=== PATIENT | male | born 1990 | race African-American/Black ===

== ENCOUNTER 2016-10-22 17:02 | Emergency (ER) | payer SELFPAY ==
[~2016-10-22] VITALS: Ht 177.8 cm; Wt 70.0 kg
[2016-10-22 17:03] VITALS: BP 147/85; PULSE 72; RESP 20; TEMP 98.3; O2SAT 98
--- NOTE | 2016-10-22 17:08 | PD ---
Physical Exam Time Seen by Provider: 17:05 Narrative 26yo M c/o SOB x3-4 days. +chest pain. Also c/o a painful, open wound on his penis x 2-3 days. Denies penile dc, dysuria. Denies testicular swelling, pain. Denies fever, vomiting, and pain. Patient seen in triage. VS reviewed. Awaiting bed placement. Data Data Last Documented VS Vital Signs Date Time Temp Pulse Resp B/P (MAP) Pulse Ox O2 Delivery O2 Flow Rate FiO2 10/22/16 17:03 98.3 72 20 147/85 (105) 98 Room Air MDM Supervised Visit with PEREZ: No Scripts No Active Prescriptions or Reported Meds Iwona Davis Oct 22, 2016 17:07
--- NOTE | 2016-10-22 17:31 | RADRPT ---
EXAM DATE/TIME: 10/22/2016 17:31 [facility] COMPARISON: No previous studies available for comparison. INDICATIONS : Left chest pain and short of breath for five days. MEDICAL HISTORY : None. SURGICAL HISTORY : None. ENCOUNTER: Initial ACUITY: 4 - 6 days PAIN SCORE: 9/10 LOCATION: Left chest FINDINGS: PA and lateral views of the chest demonstrate the lungs to be symmetrically aerated without evidence of mass, infiltrate or effusion. The cardiomediastinal contours are unremarkable. Osseous structure s are intact. CONCLUSION: No acute disease. Liang Cox MD on October 22, 2016 at 17:29 Board Certified Radiologist. This report was verified electronically.
[2016-10-22 17:53] LABS: BACTERIA, URINE RARE /hpf; BLOOD, URINE NEG (NEG); COMMENT (UR) CULT NOT INDICATED; CULTURE IF INDICATED CULT NOT INDICATED; GLUCOSE,URINE NEG (NEG); KETONE, URINE NEG (NEG); MUCUS URINE FEW /lpf (OCC); NITRITE,URINE NEG (NEG); URINE COLOR YELLOW (YELLW/STRAW)
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
[2016-10-22 18:00] VITALS: BP 141/79; PULSE 71; RESP 20; O2SAT 98
--- NOTE | 2016-10-22 18:57 | RADRPT ---
EXAM DATE/TIME: 10/22/2016 18:20 [facility] COMPARISON: No previous studies available for comparison. INDICATIONS : Chest pain MEDICAL HISTORY : None. SURGICAL HISTORY : None. ENCOUNTER: Subsequent ACUITY: 4 - 6 days PAIN SCORE: 5/10 LOCATION: chest FINDINGS: A single view of the chest demonstrates the lungs to be symmetrically aerated without evidence of mas s, infiltrate or effusion. The cardiomediastinal contours are unremarkable. Osseous structures are intact. CONCLUSION: Normal examination. Bret Mitchell MD on October 22, 2016 at 18:56 Board Certified Radiologist. This report was verified electronically.
[2016-10-22] MEDS ORDERED: ACYC800T PO (19:15)
[2016-10-22 20:30] LABS: CHLAMYDIA PCR NOT DETECTED (NOT DETECT); NEISSERIA PCR NOT DETECTED (NOT DETECT)
--- NOTE | 2016-10-24 01:07 | EKG ---
Date Performed: 10/22/2016 Time Performed: 17:14:09 PTAGE: 26 years EKG: Sinus rhythm POSSIBLE LEFT ATRIAL ENLARGEMENT BORDERLINE ECG NO PREVIOUS TRACING DOCTOR: Abad Cho Interpretating Date/Time 10/24/2016 01:06:11
== END 2016-10-22 20:00 | disposition home or self-care (01) ==
LOC: NEPC 17:02
DX: L98.9 Disorder of the skin and subcutaneous tissue, unspecified (principal); R07.89 Other chest pain; R05 Cough; F17.200 Nicotine dependence, unspecified, uncomplicated
CPT/HCPCS: 71010; 71020; 81001; 87255; 87491; 87591; 93005

== ENCOUNTER 2016-12-02 04:26 | Emergency (ER) | payer SELFPAY ==
[~2016-12-02] VITALS: Ht 167.6 cm; Wt 73.4 kg
[~2016-12-02 04:26] MED LIST: ACYC800T PO
[2016-12-02 04:28] VITALS: BP 148/94; PULSE 77; RESP 16; TEMP 97.9; O2SAT 96
--- NOTE | 2016-12-02 05:03 | PD ---
HPI Chief Complaint: Skin Problem Time Seen by Provider: 04:44 Travel History International Travel<30 days: No Contact w/Intl Traveler<30days: No Traveled to known affect area: No History of Present Illness HPI 26-year-old black male presents to emergency department with complaints of a rash on his penis. This is a patient who had been seen in the emergency department over a month ago for similar complaint. At that time he had a negative herpes, GC and chlamydia testing. He was told to follow-up with an STD clinic but he did not. He states that he has been using condoms and has just noticed a new rash develop on the shaft of his penis. He states it is somewhat scaly in pruritic. There is some mild burning associated with this. He denies any urethral symptoms. No dysuria or frequency. States that his significant other also has a sore now as well. Symptoms are mild. No alleviating factors. Exacerbated by sex PFSH Past Medical History ADD: Yes Diminished Hearing: No Immunizations Current: Yes Tetanus Vaccination: Unknown Influenza Vaccination: No Past Surgical History Surgical History: No Previous Surgery Social History Alcohol Use: Yes (OCC) Tobacco Use: Yes (02/25 PPD) Substance Use: Yes (MARIJUANA) Allergies-Medications (Allergen,Severity, Reaction): Coded Allergies: No Known Allergies (Verified , 12/02/16) Reported Meds & Prescriptions Reported Meds & Active Scripts Active Review of Systems Except as stated in HPI: all other systems reviewed are Neg Physical Exam Narrative GENERAL: This is a well-nourished, well-developed patient, in no apparent distress. SKIN: No rashes, ecchymoses or lesions. Warm and dry. HEAD: Atraumatic. Normocephalic. EYES: PERRL, EOMI, no discharge or injection. No scleral icterus. EARS: Clear NOSE: Nasal turbinates appear normal. THROAT: Mucosa pink and moist. Airway patent. NECK: Trachea midline. supple, moves head freely. LUNGS: Clear to auscultation. CV: Regular in rhythm. ABDOMEN: Soft nontender. EXT: No clubbing cyanosis or edema. GENITOURINARY: Circumcised. Testes descended bilaterally without evidence of rotation. There is some mild irritation to the mid to distal shaft dorsal surface of the penis. There are no vesicles or pustules. No ulceration. No urethral discharge. Data Data Last Documented VS Vital Signs Date Time Temp Pulse Resp B/P (MAP) Pulse Ox O2 Delivery O2 Flow Rate FiO2 12/02/16 04:28 97.9 77 16 148/94 (112) 96 Room Air Orders Orders Ed Discharge Order (12/02/16 04:56) MDM Medical Decision Making Medical Screen Exam Complete: Yes Emergency Medical Condition: Yes Medical Record Reviewed: Yes Differential Diagnosis MDM: High Differential diagnoses: Abscess, folliculitis, cellulitis, lymphangitis, abrasion, contact dermatitis, STD Narrative Course I see no obvious herpes sore or any urethral symptoms. Patient's etiology is unclear. I've advised him to discontinue intercourse, and follow-up with a urologist and/or a STD clinic Diagnosis Primary Impression: Genital lesion, male Referrals: Urologist 1 week [facility] Dept. 1 week Patient Instructions: General Instructions Additional Instructions: Rest. Follow-up with a urologist or an STD clinic for recheck. Abstain from intercourse until a definitive diagnosis is made. Always use a condom. Return to the ER if any problems. Med/Other Pt SpecificInfo: No Meds Exist/No RX given Disposition: 01 DISCHARGE HOME Condition: Stable Ishaan Conrad Dec 02, 2016 05:03
== END 2016-12-02 05:15 | disposition home or self-care (01) ==
LOC: NEPK 04:26
DX: N48.89 Other specified disorders of penis (principal)
CPT/HCPCS: 99281

== ENCOUNTER 2017-04-26 15:40 | Emergency (ER) | payer BC ==
[2017-04-26 15:56] VITALS: BP 135/74; PULSE 94; RESP 18; TEMP 98.9; O2SAT 98
--- NOTE | 2017-04-26 18:04 | PD ---
HPI Chief Complaint: Complaint Time Seen by Provider: 15:56 (Heaven Johnson) Time Seen by Provider: 16:37 (My Arreguin) Travel History International Travel<30 days: No Contact w/Intl Traveler<30days: No Traveled to known affect area: No (Heaven Johnson) History of Present Illness HPI This is a 27-year-old male here with painful penile lesions and penile discharge times one day. Patient has a history of genital herpes. He reports these lesions are similar to his prior outbreaks. He reports a clear/yellow discharge which is new and does not typically accompany his genital herpes outbreaks. He also reports recent unprotected sex with a new partner risk and concern of STD. He denies fever or chills. No abdominal pain. No testicular pain or swelling. Symptom severity is moderate. No aggravating or alleviating factors. (My Arreguin) PFSH Past Medical History ADD: Yes Diminished Hearing: No Immunizations Current: Yes (Heaven Johnson) Medical History: Denies Significant Hx (My Arreguin) Social History Alcohol Use: Yes (OCC) Tobacco Use: Yes (02/25 PPD) Substance Use: Yes (MARIJUANA) (Heaven Johnson) Allergies-Medications (Allergen,Severity, Reaction): Coded Allergies: No Known Allergies (Verified , 12/02/16) Reported Meds & Prescriptions Reported Meds & Active Scripts Active Acyclovir 200 Mg Cap 200 Mg PO 5 TIMES A DAY 5 Days (My Arreguin) Review of Systems Except as stated in HPI: all other systems reviewed are Neg Gastrointestinal: No: Abdominal Pain Genitourinary: Positive: Discharge (My Arreguin) Physical Exam Narrative GENERAL: Well-appearing 27-year-old male HEAD: Normocephalic. EYES: No injection or drainage. NECK: Supple GASTROINTESTINAL: Abdomen soft, non-tender, nondistended. : Circumcised. 3 ulcerated lesions on the glans penis. No urethral discharge. Testes are distended bilaterally. No testicular pain or swelling BACK: No CVA tenderness. (My Arreguin) Data Data Last Documented VS Vital Signs Date Time Temp Pulse Resp B/P (MAP) Pulse Ox O2 Delivery O2 Flow Rate FiO2 04/26/17 15:56 98.9 94 18 135/74 (94) 98 (My Arreguin) Orders Orders Urinalysis - C+S If Indicated (04/26/17 16:02) Gc And Chlamydia Pcr (04/26/17 16:02) Azithromycin Powd Pack (Zithromax Powd P (04/26/17 18:30) Ceftriaxone Inj (Rocephin Inj) (04/26/17 18:30) Lidocaine 1% Inj (50 Ml) (Xylocaine 1% I (04/26/17 18:30) Ed Discharge Order (04/26/17 18:23) (My Arreguin) MDM Medical Decision Making Medical Screen Exam Complete: Yes Emergency Medical Condition: Yes Differential Diagnosis Genital herpes, urethritis, GC/Chlamydia Narrative Course This is a 27-year-old male with a history of genital herpes reporting outbreak times1-2 days. He is also reporting penile discharge and concern of STD. He will be treated empirically for GC chlamydia. (My Arreguin) Diagnosis Primary Impression: Genital herpes Qualified Codes: A60.00 - Herpesviral infection of urogenital system, unspecified Additional Impression: Penile discharge Referrals: [facility] Additional Instructions: Medication as directed. All partners need to be treated Use a condom with each episode of intercourse Scripts Acyclovir (Acyclovir) 200 Mg Cap 200 MG PO 5 TIMES A DAY for Mgmt Viral Infection for 5 Days, CAP 0 Refills Prov: My Arreguin 04/26/17 Disposition: 01 DISCHARGE HOME Condition: Stable Heaven Johnson Apr 26, 2017 18:04 My Arreguin Apr 26, 2017 18:23
[2017-04-26] MEDS ORDERED: ACYC200C66 PO (18:22)
[2017-04-26] MEDS ORDERED: cefTRIAXone 250 MG VIAL IM ONE (18:30)
[2017-04-26] MEDS ORDERED: AZITHROMYCIN PWD FOR SUSP 1 GM PACKET PO ONE (18:30)
[2017-04-26] MEDS ORDERED: LIDOCAINE HCL 1% 50 ML VIAL IM ONE (18:30)
[2017-04-26] MEDS ORDERED: LIDOCAINE HCL 1% 20 ML VIAL ONE (19:12)
[2017-04-26 22:12] LABS: BACTERIA, URINE RARE /hpf; BILIRUBIN, URINE NEG (NEG); BLOOD, URINE NEG (NEG); GLUCOSE,URINE NEG (NEG); KETONE, URINE 40 mg/dL (NEG); NITRITE,URINE NEG (NEG); PH, URINE 6.5 (5.0-8.5); SQUAMOUS EPITHELIAL CELL URINE <1 /hpf (0-5); URINE COLOR YELLOW (YELLW/STRAW); URINE LEUKOCYTE ESTERASE LARGE (NEG); WHITE BLOOD CELL CLUMPS RARE
== END 2017-04-26 19:26 | disposition home or self-care (01) ==
LOC: NEPK 15:40
DX: A60.00 Herpesviral infection of urogenital system, unspecified (principal); R36.9 Urethral discharge, unspecified; Z72.0 Tobacco use; F12.90 Cannabis use, unspecified, uncomplicated
CPT/HCPCS: 81001; 87086; 87491; 87591; 96372; 99283; J0696